=== PATIENT | female | born 1935 | race Caucasian/White ===

== ENCOUNTER 2021-06-13 09:41 | Inpatient (IN) | payer MEDICARE ==
[2021-06-13 10:22] LABS: Bilirubin Neg (Negative); Blood, Urine 10 (Negative); Clarity Clear (Clear); Glucose, Urine (Dipstick) Normal (Negative); Ketone, Urine Negative (Negative); Leukocyte 100 (Negative); Nitrite Negative (Negative); Protein, Urine (Dipstick) 100 mg/dl (Neg-Trace); Urobilinogen Normal mg/dL (Less than 2)
[2021-06-13 10:40] LABS: Bacteria/HPF Rare-Few HPF (None Seen); RBC/HPF 0-3 HPF (0-3); Squamous Epithelial 0-3 HPF (0-3); Yeast-Budding 4+ HPF (None Seen)
[2021-06-13 10:42] LABS: #Basophils 0.1 10x3/uL (0.0-0.2); #Eosinphils 0.1 10x3/uL (0.0-0.5); #Monocytes 0.8 10x3/uL (0.0-1.1); #Neutrophils 7.7 10x3/uL (1.5-8.4); %Basophils 0.6 % (0.0-2.0); %Eosinophils 1.4 % (0.0-6.0); %Lymphocytes 14.6 % (18.0-47.0); %Monocytes 7.9 % (0.0-10.0); %Neutrophils 75.2 % (40.0-75.0); Hemoglobin 11.4 g/dL (12.0-15.5); Mean Corpuscular HGB CONC 32.8 g/dL (32.0-36.0); Mean Corpuscular Hemoglobin 29.5 pg (27.0-33.0); Mean Corpuscular Volume 90.2 fl (81.6-98.3); Mean Platelet Volume 11.3 fl (7.4-10.4); Platelet Count 215 10x3/uL (150-450); RBC Distribution Width 14.6 % (11.5-14.5); Red Blood Cell (RBC) Count 3.86 10x6/uL (3.90-5.03); White Blood Cell (WBC) Count 10.2 10x3/uL (3.5-10.5)
[2021-06-13 10:53] LABS: SARS-CoV-2 NAA Rapid Test Not Detected (NotDetected)
[2021-06-13 11:25] LABS: ALT (SGPT) 21 U/L (8-55); AST (SGOT) 24 U/L (5-34); Albumin 4.1 g/dL (3.4-4.8); Alkaline Phosphatase 69 U/L (40-110); Anion Gap 11 mmol/L (10-20); BUN (Urea Nitrogen) 16 mg/dL (9.8-20.1); Bilirubin, Total 0.6 mg/dL (0.2-1.2); CK (CPK) 209 U/L (29-168); Calc. Creatinine Clearance 0 mL/min (70-130); Calcium 9.5 mg/dL (7.8-10.44); Carbon Dioxide 27 mmol/L (23-31); Chloride 106 mmol/L (98-107); Globulin 2.1 g/dL (2.4-3.5); Glucose 123 mg/dL (83-110); Protein, Total 6.2 g/dL (5.8-8.1); Sodium 141 mmol/L (136-145)
[2021-06-13 11:29] LABS: Potassium 2.8 mmol/L (3.5-5.1)
[2021-06-13] MEDS ORDERED: Potassium Chloride 20 MEQ TAB ONE (11:40)
[2021-06-13] MEDS ORDERED: Nitrofurantoin Monohyd/M-Cryst 100 MG CAP PO SCH (12:15)
[2021-06-13] MEDS ORDERED: cefTRIAXone\\ROCEPHIN 2 GM VIAL ONE (13:25)
[2021-06-13] MEDS ORDERED: Docusate 100 MG CAP PO PRN (14:54)
[2021-06-13] MEDS ORDERED: Ondansetron ODT 4 MG TAB PO PRN (14:56)
[2021-06-13] MEDS ORDERED: Senokot S 8.6-50 MG TAB PO PRN (14:56)
[2021-06-13] MEDS ORDERED: Electrolyte Replacement Protocol 1 EACH FS SCH (15:00)
[2021-06-13] MEDS ORDERED: cefTRIAXone\\ROCEPHIN 1 GM in Sodium Chloride 0.9% 100 ML IVPB SCH (15:00)
[2021-06-13] MEDS ORDERED: Enoxaparin Sodium 40 MG/0.4 ML SYRINGE SC SCH (15:00)
[2021-06-13 17:08] VITALS: BMI 22.8
[2021-06-13] MEDS ORDERED: Potassium Chloride 20 MEQ TAB PO SCH ×2 (17:30→20:00)
[2021-06-13] MEDS ORDERED: Electrolyte Replacement Protocol FS PRN (17:30)
[2021-06-13 19:12] LABS: ALT (SGPT) 23 U/L (8-55); AST (SGOT) 26 U/L (5-34); Alkaline Phosphatase 68 U/L (40-110); Anion Gap 15 mmol/L (10-20); BUN (Urea Nitrogen) 13 mg/dL (9.8-20.1); Bilirubin, Total 0.4 mg/dL (0.2-1.2); Calc. Creatinine Clearance 56 mL/min (70-130); Calcium 9.6 mg/dL (7.8-10.44); Carbon Dioxide 23 mmol/L (23-31); Chloride 107 mmol/L (98-107); Globulin 2.5 g/dL (2.4-3.5); Glucose 119 mg/dL (83-110); Magnesium 1.8 mg/dL (1.6-2.6); Phosphorus 2.5 mg/dL (2.3-4.7); Protein, Total 6.5 g/dL (5.8-8.1); Sodium 142 mmol/L (136-145)
[2021-06-13] MEDS ORDERED: Fluconazole 100 MG TAB PO SCH (21:00)
[2021-06-13] MEDS ORDERED: Magnesium 2 GM/50 ML 2 GM in Premix Bag 1 BAG IVPB SCH (21:00)
[2021-06-13] MEDS ORDERED: hydrALAZINE 20 MG/ML VIAL SLOW IVP PRN (21:51)
[2021-06-13 23:44] LABS: Potassium 3.4 mmol/L (3.5-5.1)
[2021-06-14 04:23] LABS: #Basophils 0.1 10x3/uL (0.0-0.2); #Eosinphils 0.1 10x3/uL (0.0-0.5); #Monocytes 0.8 10x3/uL (0.0-1.1); #Neutrophils 15.3 10x3/uL (1.5-8.4); %Basophils 0.5 % (0.0-2.0); %Eosinophils 0.6 % (0.0-6.0); %Lymphocytes 7.5 % (18.0-47.0); %Monocytes 4.4 % (0.0-10.0); %Neutrophils 86.7 % (40.0-75.0); Hemoglobin 12.4 g/dL (12.0-15.5); Mean Corpuscular HGB CONC 32.3 g/dL (32.0-36.0); Mean Corpuscular Hemoglobin 29.5 pg (27.0-33.0); Mean Corpuscular Volume 91.4 fl (81.6-98.3); Mean Platelet Volume 11.7 fl (7.4-10.4); Platelet Count 261 10x3/uL (150-450); RBC Distribution Width 14.4 % (11.5-14.5); White Blood Cell (WBC) Count 17.7 10x3/uL (3.5-10.5)
[2021-06-14 05:27] LABS: Anion Gap 14 mmol/L (10-20); BUN (Urea Nitrogen) 12 mg/dL (9.8-20.1); CK (CPK) 208 U/L (29-168); Calc. Creatinine Clearance 59 mL/min (70-130); Carbon Dioxide 24 mmol/L (23-31); Chloride 109 mmol/L (98-107); Glucose 128 mg/dL (83-110); Magnesium 2.6 mg/dL (1.6-2.6); Potassium 3.7 mmol/L (3.5-5.1); Sodium 143 mmol/L (136-145)
[2021-06-14] MEDS: Enoxaparin Sodium 40 MG/0.4 ML SYRINGE SC SCH (08:17)
[2021-06-14] MEDS ORDERED: metFORMIN XR 500 MG TAB PO SCH (09:45)
[2021-06-14] MEDS: Losartan Potassium 50 MG TAB PO SCH (10:14)
[2021-06-14] MEDS: Oxybutynin 5 MG TAB PO SCH ×2 (10:14→21:58)
[2021-06-14] MEDS: Estradiol 1 MG TAB PO SCH (10:14)
[2021-06-14] MEDS: cefTRIAXone\\ROCEPHIN 1 GM in Sodium Chloride 0.9% 100 ML IVPB SCH (14:32)
[2021-06-14] MEDS: Atorvastatin Calcium 20 MG TAB PO SCH (21:58)
[2021-06-15] MEDS: Oxybutynin 5 MG TAB PO SCH ×3 (02:19→20:30)
[2021-06-15] MEDS: Atorvastatin Calcium 20 MG TAB PO SCH ×2 (02:19→20:30)
[2021-06-15 03:52] LABS: #Basophils 0.1 10x3/uL (0.0-0.2); #Eosinphils 0.2 10x3/uL (0.0-0.5); #Monocytes 0.6 10x3/uL (0.0-1.1); #Neutrophils 7.4 10x3/uL (1.5-8.4); %Basophils 0.6 % (0.0-2.0); %Eosinophils 2.5 % (0.0-6.0); %Lymphocytes 10.2 % (18.0-47.0); %Monocytes 6.2 % (0.0-10.0); %Neutrophils 80.2 % (40.0-75.0); Mean Corpuscular HGB CONC 32.5 g/dL (32.0-36.0); Mean Corpuscular Hemoglobin 30.2 pg (27.0-33.0); Mean Corpuscular Volume 92.7 fl (81.6-98.3); Mean Platelet Volume 11.9 fl (7.4-10.4); Platelet Count 210 10x3/uL (150-450); RBC Distribution Width 14.4 % (11.5-14.5); Red Blood Cell (RBC) Count 3.98 10x6/uL (3.90-5.03); White Blood Cell (WBC) Count 9.2 10x3/uL (3.5-10.5)
[2021-06-15 04:03] LABS: Anion Gap 13 mmol/L (10-20); BUN (Urea Nitrogen) 12 mg/dL (9.8-20.1); Calc. Creatinine Clearance 52 mL/min (70-130); Calcium 9.5 mg/dL (7.8-10.44); Carbon Dioxide 23 mmol/L (23-31); Chloride 110 mmol/L (98-107); Glucose 114 mg/dL (83-110); Potassium 3.7 mmol/L (3.5-5.1); Sodium 142 mmol/L (136-145)
[2021-06-15] MEDS: metFORMIN XR 500 MG TAB PO SCH (08:15)
[2021-06-15] MEDS: Losartan Potassium 50 MG TAB PO SCH (08:16)
[2021-06-15] MEDS: Estradiol 1 MG TAB PO SCH (08:17)
[2021-06-15] MEDS: Enoxaparin Sodium 40 MG/0.4 ML SYRINGE SC SCH (08:20)
[2021-06-15] MEDS: ALPRAZolam 0.25 MG TAB PO PRN (10:20)
[2021-06-15] MEDS ORDERED: Morphine 4 MG/ML VIAL SLOW IVP PRN (10:57)
[2021-06-15] MEDS: HYDROcodone/Acetaminophen 5/325 mg Tablet PO PRN ×2 (11:25→19:37)
[2021-06-15] MEDS: cefTRIAXone\\ROCEPHIN 1 GM in Sodium Chloride 0.9% 100 ML IVPB SCH (14:37)
[2021-06-16] MEDS: Losartan Potassium 50 MG TAB PO SCH (09:07)
[2021-06-16] MEDS: Estradiol 1 MG TAB PO SCH (09:08)
[2021-06-16] MEDS: Oxybutynin 5 MG TAB PO SCH ×2 (09:10→20:38)
[2021-06-16] MEDS: metFORMIN XR 500 MG TAB PO SCH (09:10)
[2021-06-16] MEDS: Enoxaparin Sodium 40 MG/0.4 ML SYRINGE SC SCH (09:18)
[2021-06-16 09:46] LABS: #Basophils 0.1 10x3/uL (0.0-0.2); #Eosinphils 0.1 10x3/uL (0.0-0.5); #Monocytes 0.7 10x3/uL (0.0-1.1); #Neutrophils 9.3 10x3/uL (1.5-8.4); %Basophils 0.6 % (0.0-2.0); %Eosinophils 0.6 % (0.0-6.0); %Lymphocytes 7.1 % (18.0-47.0); %Neutrophils 85.5 % (40.0-75.0); Hemoglobin 12.5 g/dL (12.0-15.5); Mean Corpuscular HGB CONC 32.6 g/dL (32.0-36.0); Mean Corpuscular Hemoglobin 29.6 pg (27.0-33.0); Mean Corpuscular Volume 90.8 fl (81.6-98.3); Platelet Count 228 10x3/uL (150-450); RBC Distribution Width 14.5 % (11.5-14.5); Red Blood Cell (RBC) Count 4.22 10x6/uL (3.90-5.03); White Blood Cell (WBC) Count 10.8 10x3/uL (3.5-10.5)
[2021-06-16 09:52] LABS: Anion Gap 15 mmol/L (10-20); BUN (Urea Nitrogen) 15 mg/dL (9.8-20.1); Calc. Creatinine Clearance 52 mL/min (70-130); Calcium 10.1 mg/dL (7.8-10.44); Carbon Dioxide 24 mmol/L (23-31); Chloride 109 mmol/L (98-107); Glucose 147 mg/dL (83-110); Potassium 3.8 mmol/L (3.5-5.1); Sodium 144 mmol/L (136-145)
[2021-06-16] MEDS ORDERED: HYDROcodone/Acetaminophen 5/325 mg Tablet PO SCH (12:30)
[2021-06-16] MEDS: cefTRIAXone\\ROCEPHIN 1 GM in Sodium Chloride 0.9% 100 ML IVPB SCH (13:42)
[2021-06-16] MEDS: Morphine 4 MG/ML VIAL SLOW IVP SCH ×2 (13:42→20:31)
[2021-06-16] MEDS: Atorvastatin Calcium 20 MG TAB PO SCH (20:38)
[2021-06-16] MEDS: ALPRAZolam 0.25 MG TAB PO PRN (22:17)
[2021-06-17 00:56] LABS: RBC/HPF 0-3 HPF (0-3)
[2021-06-17] MEDS: Morphine 4 MG/ML VIAL SLOW IVP SCH ×4 (01:32→20:38)
[2021-06-17] MEDS: Acetaminophen 325 MG TAB PO PRN ×2 (04:29→22:03)
[2021-06-17 05:13] LABS: #Basophils 0.1 10x3/uL (0.0-0.2); #Eosinphils 0.1 10x3/uL (0.0-0.5); #Monocytes 0.7 10x3/uL (0.0-1.1); #Neutrophils 7.8 10x3/uL (1.5-8.4); %Basophils 0.6 % (0.0-2.0); %Eosinophils 1.2 % (0.0-6.0); %Lymphocytes 10.5 % (18.0-47.0); %Monocytes 6.9 % (0.0-10.0); %Neutrophils 80.5 % (40.0-75.0); Hemoglobin 11.6 g/dL (12.0-15.5); Mean Corpuscular HGB CONC 32.5 g/dL (32.0-36.0); Mean Corpuscular Hemoglobin 29.9 pg (27.0-33.0); Mean Platelet Volume 11.8 fl (7.4-10.4); Platelet Count 235 10x3/uL (150-450); RBC Distribution Width 14.5 % (11.5-14.5); Red Blood Cell (RBC) Count 3.88 10x6/uL (3.90-5.03); White Blood Cell (WBC) Count 9.7 10x3/uL (3.5-10.5)
[2021-06-17 05:27] LABS: Anion Gap 18 mmol/L (10-20); BUN (Urea Nitrogen) 19 mg/dL (9.8-20.1); Calc. Creatinine Clearance 48 mL/min (70-130); Calcium 9.9 mg/dL (7.8-10.44); Carbon Dioxide 19 mmol/L (23-31); Chloride 112 mmol/L (98-107); Glucose 113 mg/dL (83-110); Potassium 3.5 mmol/L (3.5-5.1); Sodium 145 mmol/L (136-145)
[2021-06-17] MEDS ORDERED: Potassium Chloride 20 MEQ TAB PO SCH (06:00)
[2021-06-17] MEDS: Enoxaparin Sodium 40 MG/0.4 ML SYRINGE SC SCH (08:46)
[2021-06-17] MEDS ORDERED: Lactated Ringer's 500 ML IV SCH (09:15)
[2021-06-17] MEDS: Estradiol 1 MG TAB PO SCH (09:40)
[2021-06-17] MEDS: Losartan Potassium 50 MG TAB PO SCH (09:40)
[2021-06-17] MEDS: Oxybutynin 5 MG TAB PO SCH (09:40)
[2021-06-17] MEDS: metFORMIN XR 500 MG TAB PO SCH (09:41)
[2021-06-17] MEDS: Lactated Ringer's 1,000 ML IV SCH ×2 (10:32→17:52)
[2021-06-17 18:34] LABS: Bilirubin Neg (Negative); Blood, Urine 10 (Negative); Clarity Slightly Cloudy (Clear); Glucose, Urine (Dipstick) Normal (Negative); Ketone, Urine 150 mg/dL (Negative); Leukocyte 500 (Negative); Nitrite Negative (Negative); Protein, Urine (Dipstick) 30 mg/dl (Neg-Trace); Urobilinogen Normal mg/dL (Less than 2)
[2021-06-17 18:43] LABS: Bacteria/HPF Rare-Few HPF (None Seen); Mucous/LPF 1+ LPF (<2+); RBC/HPF 0-3 HPF (0-3); Squamous Epithelial 0-3 HPF (0-3); WBC/HPF 21-50 HPF (0-3); Yeast-Budding 2+ HPF (None Seen)
[2021-06-17] MEDS: Atorvastatin Calcium 20 MG TAB PO SCH (20:37)
[2021-06-17] MEDS: Thiamine HCl 500 MG, Admixture Fee 1 EACH in Sodium Chloride 0.9% 250 ML 250 ML IVPB SCH (21:57)
[2021-06-17] MEDS ORDERED: Thiamine HCl 200 MG/2 ML VIAL SLOW IVP SCH (22:00)
[2021-06-18] MEDS: Morphine 4 MG/ML VIAL SLOW IVP SCH ×5 (00:59→22:30)
[2021-06-18 04:11] LABS: #Basophils 0.1 10x3/uL (0.0-0.2); #Eosinphils 0.2 10x3/uL (0.0-0.5); #Monocytes 0.6 10x3/uL (0.0-1.1); #Neutrophils 7.6 10x3/uL (1.5-8.4); %Basophils 0.6 % (0.0-2.0); %Eosinophils 1.6 % (0.0-6.0); %Lymphocytes 10.2 % (18.0-47.0); %Monocytes 6.2 % (0.0-10.0); %Neutrophils 81.1 % (40.0-75.0); Hemoglobin 10.6 g/dL (12.0-15.5); Mean Corpuscular HGB CONC 32.8 g/dL (32.0-36.0); Mean Corpuscular Hemoglobin 29.9 pg (27.0-33.0); Mean Platelet Volume 11.7 fl (7.4-10.4); Platelet Count 208 10x3/uL (150-450); RBC Distribution Width 14.3 % (11.5-14.5); Red Blood Cell (RBC) Count 3.55 10x6/uL (3.90-5.03); White Blood Cell (WBC) Count 9.4 10x3/uL (3.5-10.5)
[2021-06-18 04:23] LABS: Anion Gap 14 mmol/L (10-20); BUN (Urea Nitrogen) 14 mg/dL (9.8-20.1); Calc. Creatinine Clearance 57 mL/min (70-130); Calcium 9.5 mg/dL (7.8-10.44); Carbon Dioxide 21 mmol/L (23-31); Chloride 114 mmol/L (98-107); Glucose 100 mg/dL (83-110); Potassium 3.8 mmol/L (3.5-5.1); Sodium 145 mmol/L (136-145)
[2021-06-18] MEDS: Lactated Ringer's 1,000 ML IV SCH ×2 (04:45→17:05)
[2021-06-18] MEDS: Thiamine HCl 500 MG, Admixture Fee 1 EACH in Sodium Chloride 0.9% 250 ML 250 ML IVPB SCH ×3 (05:27→23:00)
[2021-06-18] MEDS: Folic Acid 1 MG TAB PO SCH (11:01)
[2021-06-18] MEDS: Losartan Potassium 50 MG TAB PO SCH (11:01)
[2021-06-18] MEDS: Estradiol 1 MG TAB PO SCH (11:01)
[2021-06-18] MEDS: Enoxaparin Sodium 40 MG/0.4 ML SYRINGE SC SCH (11:01)
[2021-06-18] MEDS: Atorvastatin Calcium 20 MG TAB PO SCH (22:41)
[2021-06-19] MEDS: Morphine 4 MG/ML VIAL SLOW IVP SCH ×5 (02:00→21:53)
[2021-06-19 04:02] LABS: #Basophils 0.1 10x3/uL (0.0-0.2); #Eosinphils 0.2 10x3/uL (0.0-0.5); #Monocytes 0.6 10x3/uL (0.0-1.1); #Neutrophils 5.7 10x3/uL (1.5-8.4); %Basophils 0.7 % (0.0-2.0); %Eosinophils 2.8 % (0.0-6.0); %Lymphocytes 19.2 % (18.0-47.0); %Monocytes 6.8 % (0.0-10.0); %Neutrophils 70.1 % (40.0-75.0); Hemoglobin 10.2 g/dL (12.0-15.5); Mean Corpuscular HGB CONC 31.9 g/dL (32.0-36.0); Mean Corpuscular Hemoglobin 29.9 pg (27.0-33.0); Mean Corpuscular Volume 93.8 fl (81.6-98.3); Mean Platelet Volume 11.9 fl (7.4-10.4); Platelet Count 166 10x3/uL (150-450); RBC Distribution Width 14.5 % (11.5-14.5); Red Blood Cell (RBC) Count 3.41 10x6/uL (3.90-5.03); White Blood Cell (WBC) Count 8.2 10x3/uL (3.5-10.5)
[2021-06-19 04:09] LABS: Anion Gap 16 mmol/L (10-20); BUN (Urea Nitrogen) 10 mg/dL (9.8-20.1); Calc. Creatinine Clearance 66 mL/min (70-130); Calcium 8.9 mg/dL (7.8-10.44); Carbon Dioxide 20 mmol/L (23-31); Chloride 113 mmol/L (98-107); Glucose 86 mg/dL (83-110); Potassium 3.5 mmol/L (3.5-5.1); Sodium 145 mmol/L (136-145)
[2021-06-19 04:17] LABS: Troponin I 0.014 ng/mL (< 0.028)
[2021-06-19] MEDS: Thiamine HCl 500 MG, Admixture Fee 1 EACH in Sodium Chloride 0.9% 250 ML 250 ML IVPB SCH ×3 (05:32→21:10)
[2021-06-19] MEDS: Lactated Ringer's 1,000 ML IV SCH ×2 (05:32→16:13)
[2021-06-19] MEDS ORDERED: Potassium Chloride 20 MEQ TAB PO SCH (08:15)
[2021-06-19] MEDS ORDERED: Magnesium 2 GM/50 ML 2 GM in Premix Bag 1 BAG IVPB SCH (08:30)
[2021-06-19] MEDS: Losartan Potassium 50 MG TAB PO SCH (10:48)
[2021-06-19] MEDS: Folic Acid 1 MG TAB PO SCH (10:48)
[2021-06-19] MEDS: Estradiol 1 MG TAB PO SCH (10:48)
[2021-06-19] MEDS: Enoxaparin Sodium 40 MG/0.4 ML SYRINGE SC SCH (10:49)
[2021-06-19] MEDS: Atorvastatin Calcium 20 MG TAB PO SCH (21:10)
[2021-06-20] MEDS: Morphine 4 MG/ML VIAL SLOW IVP SCH ×6 (04:03→20:34)
[2021-06-20] MEDS: Lactated Ringer's 1,000 ML IV SCH ×3 (04:06→17:50)
[2021-06-20 06:54] LABS: Magnesium 1.5 mg/dL (1.6-2.6)
[2021-06-20 07:07] LABS: Phosphorus 2.5 mg/dL (2.3-4.7)
[2021-06-20] MEDS ORDERED: Magnesium 2 GM/50 ML 2 GM in Premix Bag 1 BAG IVPB SCH (08:00)
[2021-06-20] MEDS: Enoxaparin Sodium 40 MG/0.4 ML SYRINGE SC SCH (09:04)
[2021-06-20] MEDS: Folic Acid 1 MG TAB PO SCH (09:05)
[2021-06-20] MEDS: Losartan Potassium 50 MG TAB PO SCH (09:05)
[2021-06-20] MEDS: Estradiol 1 MG TAB PO SCH (09:05)
[2021-06-20] MEDS ORDERED: Potassium Chloride 20 MEQ TAB PO SCH (12:00)
[2021-06-20] MEDS ORDERED: Potassium Bicarbonate/Cit Ac 20 MEQ TAB PO SCH ×2 (20:00→22:00)
[2021-06-20] MEDS: Atorvastatin Calcium 20 MG TAB PO SCH (20:34)
[2021-06-20] MEDS ORDERED: Thiamine HCl 200 MG/2 ML VIAL SLOW IVP SCH (21:00)
[2021-06-20] MEDS ORDERED: Thiamine HCl 250 MG, Admixture Fee 1 EACH in Sodium Chloride 0.9% 100 ML IVPB SCH (21:00)
[2021-06-21] MEDS: Morphine 4 MG/ML VIAL SLOW IVP SCH ×4 (01:53→13:22)
[2021-06-21 05:17] LABS: Anion Gap 12 mmol/L (10-20); BUN (Urea Nitrogen) 6 mg/dL (9.8-20.1); Calc. Creatinine Clearance 62 mL/min (70-130); Calcium 9.4 mg/dL (7.8-10.44); Carbon Dioxide 28 mmol/L (23-31); Chloride 107 mmol/L (98-107); Glucose 123 mg/dL (83-110); Magnesium 1.9 mg/dL (1.6-2.6); Potassium 3.8 mmol/L (3.5-5.1); Sodium 143 mmol/L (136-145)
[2021-06-21] MEDS ORDERED: Magnesium 2 GM/50 ML 2 GM in Premix Bag 1 BAG IVPB SCH (05:30)
[2021-06-21] MEDS: Lactated Ringer's 1,000 ML IV SCH ×2 (06:44→13:22)
[2021-06-21] MEDS ORDERED: Potassium Bicarbonate/Cit Ac 20 MEQ TAB PO SCH (08:00)
[2021-06-21] MEDS: Estradiol 1 MG TAB PO SCH (08:41)
[2021-06-21] MEDS: Losartan Potassium 50 MG TAB PO SCH (08:42)
[2021-06-21] MEDS: Folic Acid 1 MG TAB PO SCH (08:42)
[2021-06-21] MEDS: Enoxaparin Sodium 40 MG/0.4 ML SYRINGE SC SCH (08:43)
[2021-06-21 13:04] VITALS: BP 156/67; TEMP 97.7
[2021-06-21 13:21] LABS: SARS-CoV-2 PCR by NAA Not Detected (NotDetected)
== END 2021-06-21 13:21 | disposition short-term general hospital (02) | DRG 896 ==
LOC: CSHERS 09:41 → CSHTELE 16:19
PROVIDERS: ADMIT Internal Medicine; ATTEND Hospitalist
DX: F11.23 Opioid dependence with withdrawal (principal); G93.41 Metabolic encephalopathy; Z20.822 Contact with and (suspected) exposure to COVID-19; F03.90 Unspecified dementia, unspecified severity, without behavioral disturbance, psychotic disturbance, mood disturbance, and anxiety; I10 Essential (primary) hypertension; E87.6 Hypokalemia; N32.81 Overactive bladder; R00.0 Tachycardia, unspecified; J34.89 Other specified disorders of nose and nasal sinuses; E78.5 Hyperlipidemia, unspecified; R29.898 Other symptoms and signs involving the musculoskeletal system; R31.9 Hematuria, unspecified; G89.29 Other chronic pain; M54.9 Dorsalgia, unspecified; Z79.84 Long term (current) use of oral hypoglycemic drugs; Z79.899 Other long term (current) drug therapy; Z90.49 Acquired absence of other specified parts of digestive tract; Z90.710 Acquired absence of both cervix and uterus; Z90.89 Acquired absence of other organs; Z98.890 Other specified postprocedural states
CPT/HCPCS: 0240U; 36415; 36416; 51701; 70450; 70551; 71045; 80048; 80053; 81003; 81015; 82140; 82533; 82550; 83605; 83735; 83880; 84100; 84132; 84443; 84484; 85025; 85046; 87040; 87086; 93005; 93010; 94760; 96365; 96366; J0360; J0696; J1650; J2270; J3411; J3475; J3490; J7050; J7120; U0003; U0005

== ENCOUNTER 2022-01-27 15:27 | Observation (INO) | payer MEDICARE, OTHER ==
[2022-01-27 15:59] LABS: #Basophils 0.1 10x3/uL (0.0-0.2); #Eosinphils 0.3 10x3/uL (0.0-0.5); #Monocytes 0.9 10x3/uL (0.0-1.1); #Neutrophils 9.2 10x3/uL (1.5-8.4); %Basophils 0.7 % (0.0-2.0); %Eosinophils 2.7 % (0.0-6.0); %Lymphocytes 13.3 % (18.0-47.0); %Neutrophils 75.9 % (40.0-75.0); Hemoglobin 9.5 g/dL (12.0-15.5); Mean Corpuscular HGB CONC 31.4 g/dL (32.0-36.0); Mean Corpuscular Hemoglobin 26.9 pg (27.0-33.0); Mean Corpuscular Volume 85.8 fl (81.6-98.3); Mean Platelet Volume 10.7 fl (7.4-10.4); Platelet Count 341 10x3/uL (150-450); RBC Distribution Width 16.1 % (11.5-14.5); Red Blood Cell (RBC) Count 3.53 10x6/uL (3.90-5.03); White Blood Cell (WBC) Count 12.1 10x3/uL (3.5-10.5)
[2022-01-27 16:13] LABS: ALT (SGPT) 13 U/L (8-55); AST (SGOT) 13 U/L (5-34); Albumin 3.7 g/dL (3.4-4.8); Alcohol Less than 10 mg/dL (Less than 10); Alkaline Phosphatase 88 U/L (40-110); Anion Gap 17 mmol/L (10-20); BUN (Urea Nitrogen) 29 mg/dL (9.8-20.1); Bilirubin, Total 0.1 mg/dL (0.2-1.2); Calc. Creatinine Clearance 0 mL/min (70-130); Calcium 10.1 mg/dL (7.8-10.44); Carbon Dioxide 17 mmol/L (23-31); Chloride 108 mmol/L (98-107); Estimated GFR 39; Globulin 3.2 g/dL (2.4-3.5); Glucose 166 mg/dL (83-110); Potassium 4.1 mmol/L (3.5-5.1); Protein, Total 6.9 g/dL (5.8-8.1); Salicylate Less than 8.0 mg/dL (15.0-30.0); Sodium 138 mmol/L (136-145)
[2022-01-27 17:01] LABS: Amphetamine Not Detected (NotDetected); Barbiturates Screen Not Detected (NotDetected); Benzodiazepine Screen Not Detected (NotDetected); Cocaine Metabolite Screen Not Detected (NotDetected); Methadone Not Detected (NotDetected); Methamphetamine Not Detected (NotDetected); Opiate Screen Detected (NotDetected); Oxycodone Screen Not Detected (NotDetected); Phencyclidine (PCP) Not Detected (NotDetected); THC/Cannabinoid Screen Not Detected (NotDetected); Tricyclic Screen Not Detected (NotDetected)
[2022-01-27 18:06] LABS: Bilirubin Neg (Negative); Blood, Urine 150 (Negative); Clarity Cloudy (Clear); Glucose, Urine (Dipstick) Normal (Negative); Ketone, Urine Negative (Negative); Leukocyte 500 (Negative); Nitrite Negative (Negative); Protein, Urine (Dipstick) 100 mg/dl (Neg-Trace); Urobilinogen Normal mg/dL (Less than 2)
[2022-01-27 18:14] LABS: Bacteria/HPF 1+ HPF (None Seen); Squamous Epithelial 0-3 HPF (0-3); WBC/HPF Greater Than 50 HPF (0-3)
[2022-01-27] MEDS ORDERED: cefTRIAXone\\ROCEPHIN 2 GM VIAL ONE (18:50)
[2022-01-27] MEDS ORDERED: Senokot S 8.6-50 MG TAB PO PRN (19:31)
[2022-01-27] MEDS ORDERED: Baclofen 10 MG TAB PO PRN (19:31)
[2022-01-27] MEDS ORDERED: Calcium Carbonate 500 MG ChewTAB PO PRN (19:31)
[2022-01-27] MEDS ORDERED: Acetaminophen 325 MG TAB PO PRN (19:31)
[2022-01-27 20:27] LABS: Magnesium 2.1 mg/dL (1.6-2.6)
[2022-01-27 22:45] VITALS: BMI 24.1
[2022-01-27] MEDS ORDERED: HYDROcodone/Acetaminophen 7.5/325 mg Tablet PO SCH (22:45)
[2022-01-27] MEDS ORDERED: Atorvastatin Calcium 20 MG TAB PO SCH (22:45)
[2022-01-27] MEDS: Lactated Ringer's 1,000 ML IV SCH (22:52)
[2022-01-28 04:50] LABS: #Basophils 0.1 10x3/uL (0.0-0.2); #Eosinphils 0.3 10x3/uL (0.0-0.5); #Monocytes 0.8 10x3/uL (0.0-1.1); #Neutrophils 9.2 10x3/uL (1.5-8.4); %Basophils 0.4 % (0.0-2.0); %Eosinophils 2.4 % (0.0-6.0); %Lymphocytes 9.3 % (18.0-47.0); %Monocytes 7.1 % (0.0-10.0); %Neutrophils 80.4 % (40.0-75.0); Hemoglobin 9.4 g/dL (12.0-15.5); Mean Corpuscular HGB CONC 30.9 g/dL (32.0-36.0); Mean Corpuscular Hemoglobin 26.9 pg (27.0-33.0); Mean Corpuscular Volume 87.1 fl (81.6-98.3); Mean Platelet Volume 10.9 fl (7.4-10.4); Platelet Count 288 10x3/uL (150-450); RBC Distribution Width 16.2 % (11.5-14.5); Red Blood Cell (RBC) Count 3.49 10x6/uL (3.90-5.03); White Blood Cell (WBC) Count 11.5 10x3/uL (3.5-10.5)
[2022-01-28 05:05] LABS: Anion Gap 14 mmol/L (10-20); BUN (Urea Nitrogen) 18 mg/dL (9.8-20.1); Calc. Creatinine Clearance 49 mL/min (70-130); Calcium 9.1 mg/dL (7.8-10.44); Carbon Dioxide 20 mmol/L (23-31); Chloride 112 mmol/L (98-107); Estimated GFR 74; Glucose 168 mg/dL (83-110); Iron 35 ug/dL (50-170); Iron Binding Capacity, Total 351 mcg/dL (265-497); Potassium 3.5 mmol/L (3.5-5.1); Sodium 142 mmol/L (136-145)
[2022-01-28 05:29] LABS: Ferritin 47.24 ng/mL (10-291)
[2022-01-28] MEDS ORDERED: Potassium Chloride 20 MEQ TAB PO SCH (08:00)
[2022-01-28] MEDS: Lactated Ringer's 1,000 ML IV SCH (08:25)
[2022-01-28] MEDS ORDERED: Enoxaparin Sodium 30 MG/0.3 ML SYRINGE SC SCH (09:00)
[2022-01-28] MEDS ORDERED: Losartan Potassium 50 MG TAB PO SCH (09:00)
[2022-01-28] MEDS ORDERED: Estradiol 1 MG TAB PO SCH (09:00)
[2022-01-28] MEDS ORDERED: HYDROcodone/Acetaminophen 7.5/325 mg Tablet PO SCH (09:00)
[2022-01-28] MEDS ORDERED: Folic Acid 1 MG TAB PO SCH (09:00)
[2022-01-28 10:59] LABS: Hemoglobin 9.8 g/dL (12.0-15.5); Platelet Count 279 10x3/uL (150-450)
[2022-01-28 11:14] LABS: Anion Gap 13 mmol/L (10-20); BUN (Urea Nitrogen) 13 mg/dL (9.8-20.1); Calc. Creatinine Clearance 51 mL/min (70-130); Calcium 9.5 mg/dL (7.8-10.44); Carbon Dioxide 23 mmol/L (23-31); Chloride 110 mmol/L (98-107); Estimated GFR 77; Glucose 217 mg/dL (83-110); Potassium 4.1 mmol/L (3.5-5.1); Sodium 142 mmol/L (136-145)
[2022-01-28 12:00] VITALS: BP 146/76; TEMP 97.5
[2022-01-28] MEDS ORDERED: cefTRIAXone\\ROCEPHIN 1 GM in Sodium Chloride 0.9% 100 ML IVPB SCH (18:30)
[2022-01-28] MEDS ORDERED: Atorvastatin Calcium 20 MG TAB PO SCH (21:00)
[2022-01-29] MEDS ORDERED: Enoxaparin Sodium 40 MG/0.4 ML SYRINGE SC SCH (09:00)
== END 2022-01-28 12:20 | disposition home health service (06) ==
LOC: CSHERS 15:27 → CSHTELE 22:29
PROVIDERS: ADMIT Family Medicine; ATTEND Family Medicine
DX: F05 Delirium due to known physiological condition (principal); U07.1 COVID-19; F03.90 Unspecified dementia, unspecified severity, without behavioral disturbance, psychotic disturbance, mood disturbance, and anxiety; E78.5 Hyperlipidemia, unspecified; F11.90 Opioid use, unspecified, uncomplicated; R29.898 Other symptoms and signs involving the musculoskeletal system; I47.1 Supraventricular tachycardia; G93.40 Encephalopathy, unspecified; E74.39 Other disorders of intestinal carbohydrate absorption; N39.0 Urinary tract infection, site not specified; I12.9 Hypertensive chronic kidney disease with stage 1 through stage 4 chronic kidney disease, or unspecified chronic kidney disease; N18.32 Chronic kidney disease, stage 3b; D63.1 Anemia in chronic kidney disease; N17.9 Acute kidney failure, unspecified; E86.0 Dehydration; Z79.899 Other long term (current) drug therapy
CPT/HCPCS: 51701; 70450; 71045; 80048 ×2; 80306; 80307; 82607; 82728; 82962; 83540; 83550; 83735; 84484; 85014; 85018; 85025; 85049; 87086; 93005; 96361; 96365; 96372; 97116; 99285; G0378 ×3; U0003; U0005; 36415; 36416; 80053; 81003; 81015; 82274; 84443; J0696; J1650; J7120